=== PATIENT | female | born 1990 | race African-American/Black ===

== ENCOUNTER 2019-02-01 16:50 | Emergency (ER) | payer MEDICAID ==
[~2019-02-01] VITALS: Ht 170.2 cm; Wt 129.3 kg
[2019-02-01 17:09] VITALS: Ht 170.2 cm; Wt 129.3 kg
[2019-02-01 17:32] LABS: BASOPHIL % 3.6 % (0-2); PLATELET COUNT 335 x10^3mcL (130-400); RED CELL DISTRIBUTION WIDTH 15.2 % (11.5-14.5)
[2019-02-01 19:11] LABS: UA SPECIFIC GRAVITY <=1.005 (1.005-1.035); microscopic required? YES; urine erythrocyte 3+ (NEGATIVE)
[2019-02-01 19:48] VITALS: BP 104/60
== END 2019-02-01 19:48 | disposition home or self-care (01) ==
LOC: ED 16:50
DX: N93.8 Other specified abnormal uterine and vaginal bleeding (principal)
CPT/HCPCS: 36415